=== PATIENT | male | born 2000 | race Caucasian/White ===

== ENCOUNTER 2023-07-04 01:56 | Day surgery (SDC) | payer OTHER, SELFPAY ==
[2023-06-26 08:37] VITALS: BMI 24.1
[2023-07-04 11:54] VITALS: BP 111/71; PULSE 38; RESP 18; TEMP 36.1; O2SAT 100
[2023-07-04] MEDS: LACTATED RINGERS 1,000 ML 150 ML IV CONT (12:04)
--- NOTE | 2023-07-04 12:14 | P.PNAN_ITS ---
Anes - Initial Pre Proc Eval Procedure: Operation Date: 07/04/23 13:00 Proposed Procedures p Esophagogastroduodenoscopy & Colonoscopy - Adarsh Landry MD Date/Time: 07/04/23 12:14 Surgeon: Adarsh Landry MD Pre Op Diagnosis: constipation, GERD without esophagitis Patient Data Age: 23 Gender: M Height: 1.7 m Weight: 69.8 kg Last Vital Signs Temp 97 F L 07/04/23 11:54 Pulse 38 L 07/04/23 11:54 Resp 18 07/04/23 11:54 BP 111/71 07/04/23 11:54 Pulse Ox 100 07/04/23 11:54 O2 Del Method Room Air 07/04/23 11:54 Allergies Allergy/AdvReac Type Severity Reaction Status Date / Time No Known Allergies Allergy Verified 07/04/23 11:49 Home Medications Medication Instructions Recorded Confirmed Type fluvoxamine 100 mg 100 mg PO BID 05/17/23 06/26/23 History capsule,extended release 24 hr guanfacine 1 mg tablet 3 mg PO BID 05/17/23 06/26/23 History lithium carbonate 300 mg capsule 300 mg PO BID 05/17/23 06/26/23 History methylphenidate HCl 20 mg biphasic 20 mg PO HS 05/17/23 06/26/23 History 30-70 capsule,extended release risperidone 0.5 mg tablet 0.5 mg PO BID 05/17/23 06/26/23 History methylphenidate HCl 30 mg biphasic 30 mg PO DAILY 06/26/23 06/26/23 History 30-70 capsule,extended release Patient hx anesthesia problems: none Family hx anesthesia problems: none Results Review: All pre-operative results and documents have been reviewed as part of the pre- operative evaluation. [facility] Past Medical History Medical History Anxiety Chronic constipation Constipation GERD (gastroesophageal reflux disease) Hematochezia Rectal pain Tobacco use Social History Social History Smoking packs per day: 0.5 Smoking cigarettes per day: 10.0 Years smoked: 2 Smoking pack-years: 1.00 Smoking status: Current every day smoker Tobacco type: cigarettes Alcohol intake: current Drinks per week: 8 Substance use: current Substance use type: marijuana Other substance usage details: 3x a week Living arrangements: with family Spiritual care concerns: No Anes - Eval Final PreProcedure Day of Procedure 07/04/23 12:14 Patient weight: normal Heart: bradycardia Lungs: clear to auscultation Airway: Mallampati scale class II Neurological: alert and oriented Last oral intake: >/= 8 hours ASA classification: II Emergent: no Anesthetic plan: proceed Anesthesia type and monitoring: general GIVS and standard monitoring Results Review: All pre-operative results and documents have been reviewed as part of the pre- operative evaluation. Informed Consent: The patient's anesthetic plan and its attendant risks and benefits were discussed with the patient/family/POA. Questions were solicited and answers provided to the satisfaction of the patient/family/POA.
[2023-07-04] MEDS: GLYCOPYRROLATE INJ (*SP) 0.2 MG/ML VIAL IV PUSH (12:15)
[2023-07-04 12:16] VITALS: BP 99/62; PULSE 40
[2023-07-04 12:26] VITALS: BP 104/62; PULSE 38
--- NOTE | 2023-07-04 12:50 | SUR.PREOP ---
Patient and patients mother spoke at length with Dr Sahu. Decision made to reschedule procedure due to low heart rate. Dr May made aware. Orders placed for discharge.
== END 2023-07-04 12:53 | disposition home or self-care (01) ==
PROVIDERS: PCP Family Medicine; Visit Provider Internal Medicine Gastroenterology
PROC: 0DJ08ZZ Inspection of Upper Intestinal Tract, Via Natural or Artificial Opening Endoscopic (ICD-10-PCS; CPT 43235; principal; 2023-07-04 13:00)
DX: K92.1 Melena (principal); R00.1 Bradycardia, unspecified; Z53.09 Procedure and treatment not carried out because of other contraindication
CPT/HCPCS: 99211; G0463; J1596; J7120

== ENCOUNTER 2023-07-18 00:34 | Day surgery (SDC) | payer OTHER, SELFPAY ==
[2023-07-10 09:10] VITALS: BMI 24.9
[2023-07-18] VITALS (8 sets, daily range): BP systolic 86–131; BP diastolic 48–83; PULSE 45–63; RESP 19–21; TEMP 36.3; O2SAT 94–100
[2023-07-18] MEDS: LACTATED RINGERS 1,000 ML 150 ML IV CONT ×2 (11:54→13:36)
--- NOTE | 2023-07-18 12:16 | WPDANESEPPF ---
Anes - Initial Pre Proc Eval Procedure: Operation Date: 07/18/23 13:00 Proposed Procedures p Esophagogastroduodenoscopy & Colonoscopy - Adarsh Landry MD Date/Time: 07/18/23 12:16 Surgeon: Adarsh Landry MD Pre Op Diagnosis: Melena, other specified disease of anus/rectum Patient Data Age: 23 Gender: M Height: 1.68 m Weight: 67.5 kg Last Vital Signs Temp 36.3 C L 07/18/23 11:44 Pulse 63 07/18/23 11:44 Resp 19 07/18/23 11:44 BP 131/72 07/18/23 11:44 Pulse Ox 100 07/18/23 11:44 O2 Del Method Room Air 07/18/23 11:44 Allergies Allergy/AdvReac Type Severity Reaction Status Date / Time No Known Allergies Allergy Verified 07/18/23 11:42 Home Medications Medication Instructions Recorded Confirmed Type fluvoxamine 100 mg 100 mg PO BID 05/17/23 07/10/23 History capsule,extended release 24 hr guanfacine 1 mg tablet 3 mg PO BID 05/17/23 07/10/23 History lithium carbonate 300 mg capsule 300 mg PO BID 05/17/23 07/10/23 History methylphenidate HCl 20 mg biphasic 20 mg PO HS 05/17/23 07/10/23 History 30-70 capsule,extended release risperidone 0.5 mg tablet 0.5 mg PO BID 05/17/23 07/10/23 History methylphenidate HCl 30 mg biphasic 30 mg PO DAILY 06/26/23 07/10/23 History 30-70 capsule,extended release Patient hx anesthesia problems: none Family hx anesthesia problems: none Results Review: All pre-operative results and documents have been reviewed as part of the pre-operative evaluation. [facility] Past Medical History Medical History Anxiety Chronic constipation Constipation GERD (gastroesophageal reflux disease) Hematochezia Rectal pain Tobacco use Social History Social History Smoking packs per day: 0.5 Smoking cigarettes per day: 10.0 Years smoked: 2 Smoking pack-years: 1.00 Smoking status: Current every day smoker Tobacco type: cigarettes Drinks per week: 8 Substance use: current Substance use type: marijuana Other substance usage details: 3x a week Living arrangements: with family Spiritual care concerns: No Anes - Eval Final PreProcedure Day of Procedure 07/18/23 12:16 Patient weight: normal Heart: regular rate and rhythm Lungs: clear to auscultation Airway: Mallampati scale class II Neurological: alert and oriented Last oral intake: >/= 8 hours ASA classification: II Emergent: no Anesthetic plan: proceed Anesthesia type and monitoring: general GIVS and standard monitoring Results Review: All pre-operative results and documents have been reviewed as part of the pre-operative evaluation. Informed Consent: The patient's anesthetic plan and its attendant risks and benefits were discussed with the patient/family/POA. Questions were solicited and answers provided to the satisfaction of the patient/family/POA.
--- NOTE | 2023-07-18 12:43 | PM.HPGS ---
History of Present Illness History of Present Illness Consent: Risks, benefits, and alternatives have been discussed and questions answered. Patient agrees to proceed with procedure. Chief complaint: Melena, other specified disease of anus/rectum Narrative: Sania Morris is a 23 year old male here for first egd and colonoscopy, he has chronic constipation and gerd using pepcid. Review of Systems Review of Systems: All systems reviewed & are unremarkable except as noted in HPI and below PMFSH Past Medical History Medical History Anxiety Chronic constipation Constipation GERD (gastroesophageal reflux disease) Hematochezia Rectal pain Tobacco use Social History Social History Smoking packs per day: 0.5 Smoking cigarettes per day: 10.0 Years smoked: 2 Smoking pack-years: 1.00 Smoking status: Current every day smoker Tobacco type: cigarettes Drinks per week: 8 Substance use: current Substance use type: marijuana Other substance usage details: 3x a week Living arrangements: with family Spiritual care concerns: No Meds Home Medications and Allergies Home Medications Medication Instructions Recorded Confirmed Type fluvoxamine 100 mg 100 mg PO BID 05/17/23 07/10/23 History capsule,extended release 24 hr guanfacine 1 mg tablet 3 mg PO BID 05/17/23 07/10/23 History lithium carbonate 300 mg capsule 300 mg PO BID 05/17/23 07/10/23 History methylphenidate HCl 20 mg biphasic 20 mg PO HS 05/17/23 07/10/23 History 30-70 capsule,extended release risperidone 0.5 mg tablet 0.5 mg PO BID 05/17/23 07/10/23 History methylphenidate HCl 30 mg biphasic 30 mg PO DAILY 06/26/23 07/10/23 History 30-70 capsule,extended release Allergies Allergy/AdvReac Type Severity Reaction Status Date / Time No Known Allergies Allergy Verified 07/18/23 11:42 Vital Signs Vital Signs - 24 hr 07/18/23 11:44 Temperature 97.3 F L Pulse Rate 63 Respiratory Rate 19 Blood Pressure 131/72 Pulse Oximetry 100 Oxygen Delivery Room Air Exam Const: General: comfortable and no acute distress HENMT: Face/Nose/Sinus: Normal nares present Eyes: General: appearance normal, both eyes and all related structures Neck: Neck: no JVD Resp: Auscultation: clear to auscultation bilaterally Cardio: Rate: regular rate Rhythm: regular rhythm GI: Inspection: non-distended GI Palp: Yes Soft to palpation Skin: General skin exam: normal color Neuro: General: gait normal Speech: normal speech Extrem: General: normal to inspection Psych: Mental Status: mental status grossly normal Assessment and Plan Assessment and plan (1) Chronic constipation: Code(s): K59.09 - Other constipation Status: Acute Assessment and Plan: colonoscopy (2) GERD (gastroesophageal reflux disease): Code(s): K21.9 - Gastro-esophageal reflux disease without esophagitis Status: Acute Assessment and Plan: egd
--- NOTE | 2023-07-18 13:05 | SUR.OPER ---
EGD ended 1301 colonoscopy started 130
--- NOTE | 2023-07-18 13:51 | SUR.PHASEII ---
Patient slow to wake up. Per patient's mother, he does smoke marijuana but doesn't believe that he smoked it this morning. Continuing to monitor patient and vital signs.
--- NOTE | 2023-07-18 13:59 | SUR.PHASEII ---
Did report to Dr. Sahu that the patient is still slow to wake up, on 2nd bag of fluids and vital signs are within normal limits. Dr. Sahu stated he would come over and assess the patient.
== END 2023-07-18 14:27 | disposition home or self-care (01) ==
PROVIDERS: PCP Family Medicine; Visit Provider Internal Medicine Gastroenterology
PROC: 0DJ08ZZ Inspection of Upper Intestinal Tract, Via Natural or Artificial Opening Endoscopic (ICD-10-PCS; CPT 43235; principal; 2023-07-18 13:00)
DX: K59.09 Other constipation (principal); K22.70 Barrett's esophagus without dysplasia; K44.9 Diaphragmatic hernia without obstruction or gangrene; K21.9 Gastro-esophageal reflux disease without esophagitis; F41.9 Anxiety disorder, unspecified; F17.210 Nicotine dependence, cigarettes, uncomplicated; F12.90 Cannabis use, unspecified, uncomplicated
CPT/HCPCS: 45378; 43239; 88305; J2704; J7120

== ENCOUNTER 2025-01-01 11:19 | Outpatient (CLI) | payer OTHER, SELFPAY ==
[2025-01-01 18:50] LABS: Magnesium 2.2 mg/dL (1.6-2.3)
[2025-01-01 19:44] LABS: Vitamin B12 381.0 pg/mL (239-931)
== END 2025-01-01 11:20 | disposition home or self-care (01) ==
LOC: ANHBWCLAB 11:20
PROVIDERS: PCP Family Medicine; Visit Provider Nurse Practitioner
DX: K21.9 Gastro-esophageal reflux disease without esophagitis (principal)
CPT/HCPCS: 36415; 82607; 83735